=== PATIENT | female | born 1975 | race Caucasian/White ===

== ENCOUNTER 2016-04-17 09:04 | Emergency (ER) | payer OTHER ==
[2016-04-17 09:48] VITALS: PULSE 69; BMI 33.8
[2016-04-17] MEDS ORDERED: ACETAMINOPHEN 325 MG TABLET (FP) PO ONE (10:06)
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
[2016-04-17] MEDS ORDERED: ACETAMINOPHEN 325 MG TABLET (FP) ONE (10:32)
[2016-04-17 14:00] VITALS: BP 125/73; TEMP 97.9
[2016-04-17] MEDS ORDERED: IBUPROFEN 400 MG TABLET (FP) PO ONE ×2 (14:08)
[2016-04-17] MEDS ORDERED: IBUPROFEN 600 MG TABLET (FP) PO ONE (14:10)
== END 2016-04-17 14:20 | disposition home or self-care (01) ==
LOC: JER 09:04
DX: M54.5 Low back pain (principal); V43.52XA Car driver injured in collision with other type car in traffic accident, initial encounter; Y92.412 Parkway as the place of occurrence of the external cause; Y93.89 Activity, other specified; Y99.9 Unspecified external cause status
CPT/HCPCS: 70450-TC; 72070-TC; 72100-TC; 72125-TC; 73030-TC-RT; 84703; 99282-25